=== PATIENT | female | born 1975 | race American Indian/Alaskan Native ===

== ENCOUNTER 2017-05-08 20:05 | Emergency (ER) | payer MEDICARE, MEDICAID ==
[2017-05-08 20:05] VITALS: BMI 23.3
[2017-05-08 20:12] VITALS: BP 117/69; PULSE 85; RESP 16; TEMP 97.7; O2SAT 100
[2017-05-08] MEDS ORDERED: Sodium Chloride 0.9% 1,000 ML IV STA (20:56)
[2017-05-08 21:25] LABS: HEMATOCRIT 37.7 % (34.0-47.0); MEAN CELL VOLUME 94.3 fl (81.0-99.0); MEAN CORPUSCULAR HEMOGLOBIN 30.9 pg (27.0-31.0); MEAN CORPUSCULAR HGB CONC 32.8 g/dL (33.0-37.0); WHITE BLOOD COUNT 7.4 K/uL (4.8-10.8)
[2017-05-08 21:38] LABS: ALKALINE PHOSPHATASE 63 U/L (38-126); ALT/SGPT 34 U/L (9-52); AST/SGOT 17 U/L (14-36); BILIRUBIN,TOTAL 0.4 mg/dl (0.2-1.3); BLOOD UREA NITROGEN 16 mg/dl (7-17); CALCIUM 8.3 mg/dL (8.4-10.2); CARBON DIOXIDE 26 mmol/L (22-30); CHLORIDE 106 mmol/L (98-107); GFR AFRICAN-AMERICAN > 60; GLUCOSE,RANDOM 76 mg/dL (65-105); POTASSIUM 4.6 MMOL/L (3.6-5.0); SODIUM 138 mmol/l (132-148); TOTAL PROTEIN 7.5 G/DL (6.3-8.2)
--- NOTE | 2017-05-09 00:17 | ED PDOC ---
HPI: Abdomen Time Seen by Provider: 05/08/17 20:32 Chief Complaint (Nursing): GI Problem Chief Complaint (Provider): Bloated, contipation History Per: Patient History/Exam Limitations: no limitations Onset/Duration Of Symptoms: Days Outside of [place] travel?: No Current Symptoms Are (Timing): Still Present Severity: None Additional Complaint(s): Pt reports having MS and state she gets constipation regularly and normally gets a pill that maker her go but she states it take hours to work. Pts granddaughter is a patient on the peds floor. Pt ate she is stressed. Past Medical History Reviewed: Historical Data, Nursing Documentation, Vital Signs Vital Signs: Last Vital Signs Temp 97.7 F 05/08/17 20:10 Pulse 85 05/08/17 20:10 Resp 16 05/08/17 20:10 BP 117/69 05/08/17 20:10 Pulse Ox 100 05/08/17 20:10 - Medical History PMH: Anemia, Anxiety, Asthma, Deep Vein Thrombosis, Gastritis, Hiatal Hernia ( REPAIR 3 TIMES), Hypercholesterolemia, Hypothyroidism, Migraine, Multiple Sclerosis, Pulmonary Embolism (2014), Rheumatoid Arthritis, Sleep Apnea (C PAP 12) Denies: Diabetes, Hepatitis, Chronic Kidney Disease Comment Only: Personality Disorder (PANIC DIORDER) - Surgical History Surgical History: Endoscopy - Family History Family History: States: Unknown Family Hx - Immunization History Hx Tetanus Toxoid Vaccination: Yes Hx Influenza Vaccination: No Hx Pneumococcal Vaccination: No - Home Medications Home Medications: Ambulatory Orders Medication Instructions Recorded Alprazolam [Xanax] 2 mg PO TID 04/12/14 Pantoprazole [Protonix EC Tab] 1 tab PO DAILY #30 ect 04/14/15 Cyanocobalamin (Vitamin B-12) 100 mcg IM Q30D 09/17/15 [Cyanocobalamin Injection] Furosemide [Lasix] 40 mg PO PRN 12/06/15 Levothyroxine [Synthroid] 0.075 mg PO DAILY 12/06/15 Docusate [Colace] 100 mg PO Q12H PRN #10 cap 05/09/17 - Allergies Allergies/Adverse Reactions: Allergies Allergy/AdvReac Type Severity Reaction Status Date / Time acetaminophen [From Percocet] Allergy RASH Verified 11/16/16 12:07 codeine Allergy SHORTNESS Verified 11/16/16 12:07 OF BREATH oxycodone HCl [From Percocet] Allergy RASH Verified 11/16/16 12:07 Penicillins Allergy SHORTNESS Verified 11/16/16 12:07 OF BREATH ranitidine HCl [From Zantac] Allergy ANAPHYLAXIS Verified 11/16/16 12:07 apple AdvReac RASH Verified 11/16/16 12:07 pistachios Allergy SHORTNESS Uncoded 11/16/16 12:07 OF BREATH Review of Systems ROS Statement: Except As Marked, All Systems Reviewed And Found Negative Constitutional: Negative for: Fever, Chills Gastrointestinal: Positive for: Abdominal Pain, Constipation. Negative for: Nausea, Vomiting Physical Exam - Reviewed Nursing Documentation Reviewed: Yes Vital Signs Reviewed: Yes - Physical Exam Appears: Positive for: Well, Non-toxic, No Acute Distress Head Exam: Positive for: ATRAUMATIC, NORMAL INSPECTION, NORMOCEPHALIC Skin: Positive for: Normal Color, Warm, DRY Eye Exam: Positive for: Normal appearance ENT: Positive for: Normal ENT Inspection Neck: Positive for: Normal, Painless ROM Cardiovascular/Chest: Positive for: Regular Rate, Rhythm Respiratory: Positive for: Normal Breath Sounds. Negative for: Accessory Muscle Use Gastrointestinal/Abdominal: Positive for: Normal Exam, Bowel Sounds, Soft. Negative for: Tenderness Back: Positive for: Normal Inspection Extremity: Positive for: Normal ROM Neurologic/Psych: Positive for: Alert, Oriented - Laboratory Results Result Diagrams: 05/08/17 21:21 05/08/17 21:21 - ECG O2 Sat by Pulse Oximetry: 100 Medical Decision Making Medical Decision Making: Pt states she ate fried chicken and fired for dinner. Pt has BM after enema. Disposition - Clinical Impression Clinical Impression: Constipation - Patient ED Disposition Is Patient to be Admitted: No Counseled Patient/Family Regarding: Diagnosis, Need For Followup, Rx Given - Disposition Disposition: Routine/Home Disposition Time: 00:13 Condition: GOOD Prescriptions: Docusate [Colace] 100 mg PO Q12H PRN #10 cap PRN Reason: Constipation Instructions: Constipation (ED) Forms: [employer] ([employer])
--- NOTE | 2017-05-09 08:39 | RAD ---
PROCEDURE: Radiographs of the chest and abdomen (obstructive series) HISTORY: constipation COMPARISON: No prior. TECHNIQUE: AP radiograph of the chest, with upright and supine radiographs of the abdomen. FINDINGS: CHEST: Lungs: Clear. Cardiovascular: Normal size heart. No pulmonary vascular congestion. Pleura: No pleural fluid. No pneumothorax. Other findings: None. ABDOMEN AND PELVIS: Bowel: Unremarkable bowel gas pattern. No evidence of mechanical obstruction. Free air: None. Bones: Unremarkable. Other findings: None. IMPRESSION: Unremarkable radiographs of chest and abdomen. No evidence of mechanical bowel obstruction.
== END 2017-05-09 00:25 | disposition home or self-care (01) ==
LOC: H.ER 20:05
DX: K59.00 Constipation, unspecified (principal); E03.9 Hypothyroidism, unspecified; E78.00 Pure hypercholesterolemia, unspecified; G35 Multiple sclerosis; Z86.711 Personal history of pulmonary embolism; Z86.718 Personal history of other venous thrombosis and embolism; Z88.0 Allergy status to penicillin; Z88.5 Allergy status to narcotic agent
CPT/HCPCS: 74022; 80053; 81025; 85027; 99282; J7040